=== PATIENT | female | born 1955 | race American Indian/Alaskan Native ===

== ENCOUNTER → 2016-10-28 | Outpatient (CLI) | payer BC ==
[~2016-10-28] MED LIST: MULTIPLE VITAMI1 CAP PO; PREMARIN PO; SYNTHROID0.075 MG PO; VITAMIN B-1000 MCG/T PO; VITAMIN B-6100 MG PO; VITAMIN C BUFF500 MG PO; VITAMIN D1000 IU PO
[2016-10-28 12:54] LABS: HEMATOCRIT 49.3 % (37.0-47.0); HEMOGLOBIN 16.9 g/dl (12.5-16.0); MEAN CELL VOLUME 89 fl (80.0-100.0); MEAN CORPUSCULAR HEMOGLOBIN 31 pg (27.0-31.0); MEAN CORPUSCULAR HGB CONC 34 g/dl (33.0-37.0); MEAN PLATELET VOLUME 10.8 fl (7.4-10.4); PLATELET COUNT 157 K/mm3 (130-400); RED BLOOD COUNT 5.52 M/mm3 (4.10-5.30); REDCELL DISTRIBUTION WIDTH-CV 12.5 % (11.5-14.5); WHITE BLOOD COUNT 7.6 K/mm3 (4.8-10.8)
[2016-10-28 16:46] LABS: ADJUSTED CALCIUM 9.1 mg/dL (8.4-10.2); ALBUMIN 4.2 gm/dL (3.5-5.0); BILIRUBIN,TOTAL 1.5 mg/dL (0.0-1.0); CALCIUM 9.3 mg/dL (8.4-10.2); CREATININE, serum 0.72 mg/dL (0.52-1.25); POTASSIUM 3.8 mmol/L (3.4-5.0); TOTAL PROTEIN 8.4 gm/dL (6.4-8.2)
[2016-10-28 16:49] LABS: INFLUENZA B NEGATIVE
== END ==
LOC: COL.LAB 11:21
PROVIDERS: Emergency Medicine
DX: G43.A0 Cyclical vomiting, in migraine, not intractable (principal); R05 Cough; R50.9 Fever, unspecified

== ENCOUNTER 2018-09-10 13:00 | Outpatient (RCR) | payer OTHER | END 2018-09-11 | disposition home or self-care (01) | LOC: MKS.ESL.PT | DX: Z47.89 Encounter for other orthopedic aftercare (principal) | CPT/HCPCS: G0283-GP ==

== ENCOUNTER 2018-12-10 13:00 | Outpatient (RCR) | payer OTHER | END 2018-12-11 | disposition home or self-care (01) | LOC: MKS.ESL.PT | DX: Z47.89 Encounter for other orthopedic aftercare (principal); M25.511 Pain in right shoulder ==

== ENCOUNTER 2018-12-14 13:00 | Outpatient (RCR) | payer OTHER | END 2019-01-28 15:14 | disposition home or self-care (01) | LOC: WSPT 13:00 | DX: Z02.1 Encounter for pre-employment examination (principal) ==

== ENCOUNTER → 2021-08-02 | Outpatient (CLI) | payer BC | LOC: COL.CARD 11:02 | DX: R00.2 Palpitations (principal) ==

== ENCOUNTER 2022-12-31 15:41 | Emergency (ER) | payer BC ==
[~2022-12-31] VITALS: Ht 167.6 cm; Wt 86.4 kg
[2022-12-31 15:51] VITALS: TEMP 97.7
[2022-12-31 17:26] VITALS: BP 138/81; PULSE 80
== END 2022-12-31 17:26 | disposition home or self-care (01) ==
LOC: COL.ER 15:41
DX: S09.90XA Unspecified injury of head, initial encounter (principal); S01.81XA Laceration without foreign body of other part of head, initial encounter; Z23 Encounter for immunization; W27.0XXA Contact with workbench tool, initial encounter